=== PATIENT | female | born 1940 | race Hispanic/Latino ===

== ENCOUNTER → 2018-08-18 | Outpatient (CLI) | payer MEDICARE | END | disposition home or self-care (01) | LOC: RAH 15:49 | PROVIDERS: ATTEND Family Medicine | DX: M25.512 Pain in left shoulder (principal); Z95.0 Presence of cardiac pacemaker | CPT/HCPCS: 73030 ==

== ENCOUNTER 2019-02-22 02:44 | Observation (INO) | payer MEDICARE ==
[~2019-02-22] VITALS: Ht 152.4 cm; Wt 81.9 kg
[2019-02-22 03:10] LABS: BASOPHILS % (AUTO) 0.5 % (0.0-5.0); EOSINOPHILS % (AUTO) 2.6 % (0.0-8.0); HEMATOCRIT 32.8 % (36-48); LYMPHOCYTES % (AUTO) 33.8 % (21.0-51.0); MEAN CORPUSCULAR HGB CONC 33.3 g/dL (32.0-36.0); MEAN CORPUSCULAR VOLUME 95.9 fL (79-99); MONOCYTES % (AUTO) 7.3 % (3.0-13.0); NEUTROPHILS % (AUTO) 55.8 % (40.0-77.0); PLATELET COUNT (AUTO) 91 K/uL (130-400); RED BLOOD CELL COUNT(AUTO) 3.42 MIL/uL (4.00-5.50); RED CELL DISTRIBUTION WIDTH 13.7 % (11.0-15.5); WHITE BLOOD COUNT (AUTO) 6.5 K/uL (4.8-10.8)
[2019-02-22 03:20] LABS: CREATININE 2.3 mg/dL (0.5-1.5)
[2019-02-22 03:23] LABS: ALBUMIN 3.3 g/dL (3.5-5.0); BILIRUBIN,TOTAL 0.3 mg/dL (0.2-1.0); TOTAL PROTEIN, SERUM 6.8 g/dL (6.0-8.3)
[2019-02-22] MEDS ORDERED: ASPIRIN 325 MG TABLET ONE (03:27)
[2019-02-22] MEDS ORDERED: NITROGLYCERIN 0.4 MG SL TAB SL ONE (03:27)
[2019-02-22 03:28] LABS: B-TYPE NATRIURETIC PEPTIDE 48 pg/mL (0-100)
[2019-02-22] MEDS ORDERED: SODIUM CHLORIDE 0.9% 500ML 500 ML IV ONE (03:36)
[2019-02-22 03:38] LABS: INR 0.98 (0.85-1.15); PARTIAL THROMBOPLASTIN TIME 29.8 SEC (26.3-35.5); PROTHROMBIN TIME 10.3 SEC (9.6-11.6)
--- NOTE | 2019-02-22 05:30 | NUR ---
REPORT RECEIVED FROM AGUSTIN PATIÑO
--- NOTE | 2019-02-22 05:55 | NUR ---
PT ARRIVED AT THIS TIME. STABLE. NO DISTRESS NOTED. ABLE TO AMBULATE. ACCOMPANIED BY FAMILY MEMBER. NO HOME MEDS AVAILABLE. PENDING PPM INFORMATION FROM HOME. SON WILL BRING IN THE AM.
[2019-02-22 07:46] VITALS: BP 139/52
[2019-02-22 09:41] LABS: TROPONIN I 0.31 ng/mL (0.00-0.06)
[2019-02-22] MEDS ORDERED: POTASSIUM CHLORIDE 20 MEQ ERTAB PO SCH (11:00)
[2019-02-22 11:35] VITALS: BP 133/57
[2019-02-22] MEDS ORDERED: NITROGLYCERIN 1GM/1 INCH PACKET TD SCH (12:00)
[2019-02-22] MEDS ORDERED: ACETAMINOPHEN 325 MG TAB PO PRN ×2 (13:15)
[2019-02-22] MEDS ORDERED: HYDRALAZINE HCL 20 MG/ML VIAL IM PRN (13:15)
[2019-02-22] MEDS ORDERED: ENOXAPARIN SODIUM 80 MG/0.8 ML SQ SCH (13:50)
[2019-02-22] MEDS: NS-20 MEQ KCL 1000ML 1,000 ML IV SCH (14:03)
[2019-02-22] MEDS: METOPROLOL TARTRATE 50 MG TAB PO SCH ×2 (14:06→23:09)
[2019-02-22 14:10] LABS: MAGNESIUM 1.4 mg/dL (1.80-2.40); THYROID STIMULATING HORMONE 8.3 uIU/mL (0.36-3.74)
[2019-02-22 15:30] VITALS: BP 123/60
[2019-02-22 16:07] LABS: TROPONIN I 0.21 ng/mL (0.00-0.06)
--- NOTE | 2019-02-22 17:07 | NUR ---
cm note met with patient and states resides at home with spouse independent with ambulation and adls uses cane and walker only at times, mostly ambulates per self, has a walker and a cane, states may need w/c later on, informed to followup with her PCP for rx . verbalizes understanding. has provider that assists 2hrs daily. [facility] dc plan is back to home at time of dc. no dc needs. Addendum: 02/22/19 at 1709 by RENU BROWN CM Amended: Links added.
[2019-02-22 19:00] VITALS: BP 140/43
[2019-02-22] MEDS ORDERED: METOPROLOL TARTRATE 50 MG TAB PO SCH (21:00)
[2019-02-22] MEDS: INSULIN HUMULIN R 100 UNIT/ML 3ML SQ SCH ×2 (21:00→23:09)
[2019-02-22] MEDS ORDERED: MAGNESIUM 2GM PREMIX 50ML 50 ML IV PRN (21:45)
[2019-02-22 23:00] VITALS: BP 132/60
[2019-02-23 03:00] VITALS: BP 140/60
[2019-02-23 04:30] LABS: HEMATOCRIT 32.7 % (36-48); MEAN CORPUSCULAR HGB CONC 33.6 g/dL (32.0-36.0); MEAN CORPUSCULAR VOLUME 95.3 fL (79-99); NUCLEATED RED BLOOD CELLS 0.1 % (0.0-0.19); PLATELET COUNT (AUTO) 99 K/uL (130-400); RED BLOOD CELL COUNT(AUTO) 3.43 MIL/uL (4.00-5.50); WHITE BLOOD COUNT (AUTO) 5.6 K/uL (4.8-10.8)
[2019-02-23 04:35] LABS: PARTIAL THROMBOPLASTIN TIME 28.9 SEC (26.3-35.5); PROTHROMBIN TIME 10.5 SEC (9.6-11.6)
[2019-02-23 04:49] LABS: ALBUMIN 2.8 g/dL (3.5-5.0); BILIRUBIN,TOTAL 0.4 mg/dL (0.2-1.0); CREATININE 1.4 mg/dL (0.5-1.5); MAGNESIUM 1.3 mg/dL (1.80-2.40); PHOSPHORUS 2.7 mg/dL (2.5-4.9); POTASSIUM 3.9 mmol/L (3.5-5.1); TOTAL PROTEIN, SERUM 6.3 g/dL (6.0-8.3); TROPONIN I 0.09 ng/mL (0.00-0.06)
[2019-02-23] MEDS: INSULIN HUMULIN R 100 UNIT/ML 3ML SQ SCH ×4 (06:28→21:00)
[2019-02-23 07:26] VITALS: BP 145/61
[2019-02-23] MEDS ORDERED: MAGNESIUM 4GM PREMIX 100ML 100 ML IV PRN (07:45)
--- NOTE | 2019-02-23 07:52 | NUR ---
MD ROUNDS DR. JUAREZ IN TO SEE PATIENT. NEW ORDERS RECEIVED TO BE CARRIED OUT.
[2019-02-23] MEDS: ASPIRIN 325MG EC TAB 325 MG TABLET.DR PO SCH (08:01)
[2019-02-23] MEDS: NS-20 MEQ KCL 1000ML 1,000 ML IV SCH ×2 (08:01→22:35)
[2019-02-23] MEDS: METOPROLOL TARTRATE 50 MG TAB PO SCH ×2 (08:01→21:05)
[2019-02-23] MEDS ORDERED: SEMAGLUTIDE SQ (11:01)
[2019-02-23] MEDS ORDERED: EMPA25TA PO (11:08)
[2019-02-23] MEDS ORDERED: METO5TAB7 PO (11:08)
[2019-02-23] MEDS ORDERED: METF-444 PO (11:08)
[2019-02-23] MEDS ORDERED: ASPI-1197 PO (11:08)
[2019-02-23] MEDS ORDERED: METO50TA18 PO (11:08)
[2019-02-23] MEDS ORDERED: ALLO300T2 PO (11:08)
[2019-02-23] MEDS ORDERED: GABA-531 PO (11:08)
[2019-02-23] MEDS ORDERED: IRON1CAP30 PO (11:08)
[2019-02-23] MEDS ORDERED: FURO40TA5 PO (11:08)
[2019-02-23] MEDS ORDERED: OMEP-50 PO (11:08)
[2019-02-23] MEDS ORDERED: LORA1TAB3 PO (11:08)
[2019-02-23] MEDS ORDERED: MAGN400T25 PO (11:08)
[2019-02-23] MEDS ORDERED: ICOS1CAP PO (11:09)
[2019-02-23 11:30] VITALS: BP 141/58
--- NOTE | 2019-02-23 13:00 | NUR ---
RECEIVED CALL FROM DR. COWART. UPDATED STATUS. NEW ORDERS RECEIVED TO BE CARRIED OUT.
--- NOTE | 2019-02-23 14:30 | NUR ---
DR. MORA CONSULT CALLED IN TO MD OFFICE. PENDING MD TO SEE PATIENT.
[2019-02-23 15:38] VITALS: BP 142/53
--- NOTE | 2019-02-23 17:43 | NUR ---
PATIENT UPDATED ON POC PER DR COWART.
[2019-02-23 20:31] VITALS: BP 149/64
[2019-02-24 00:24] VITALS: BP 132/53
[2019-02-24 04:51] VITALS: BP 150/58
[2019-02-24] MEDS: INSULIN HUMULIN R 100 UNIT/ML 3ML SQ SCH ×4 (05:49→21:18)
--- NOTE | 2019-02-24 05:50 | NUR ---
glucometer 189, no coverage, pt npo for stress test today. will continue to monitor patient.
[2019-02-24 07:31] VITALS: BP 129/74
[2019-02-24] MEDS ORDERED: REGADENOSON 0.4 MG/5 ML PF SYG IVP SCH (07:45)
[2019-02-24] MEDS: METOPROLOL TARTRATE 50 MG TAB PO SCH (09:00)
[2019-02-24 11:08] VITALS: BP 137/58
[2019-02-24] MEDS: ASPIRIN 325MG EC TAB 325 MG TABLET.DR PO SCH (11:28)
[2019-02-24 15:16] VITALS: BP 131/55
[2019-02-24 20:03] VITALS: BP 148/49
[2019-02-24] MEDS: METOPROLOL TARTRATE 25 MG TAB PO SCH (21:00)
[2019-02-25 00:03] VITALS: BP 138/63
[2019-02-25 03:56] VITALS: BP 137/50
[2019-02-25] MEDS: INSULIN HUMULIN R 100 UNIT/ML 3ML SQ SCH (05:50)
--- NOTE | 2019-02-25 07:45 | NUR ---
AM ASSESSMENT PT SITTING IN BED, RESTING. FAMILY @ BEDSIDE. A/O X 3. NO SOB. NO DISTRESS NOTED. DENIES CHEST PAIN OR DISCOMFORT. DENIES PALPITATIONS. TELE: SR 60s. DENIES N/V AND/OR DIARRHEA. UP W/ASSISTANCE. INSTRUCTED TO CALL FOR ASSISTANCE. CALL LUPE W/IN REACH.
[2019-02-25 08:00] VITALS: BP 135/53
[2019-02-25] MEDS: METOPROLOL TARTRATE 25 MG TAB PO SCH (08:11)
[2019-02-25] MEDS: ASPIRIN 325MG EC TAB 325 MG TABLET.DR PO SCH (08:11)
[2019-02-25] MEDS ORDERED: FURO20TA6 PO (09:41)
[2019-02-25] MEDS ORDERED: METO25 PO (09:41)
--- NOTE | 2019-02-25 11:15 | NUR ---
DISCHARGE VERBAL& WRITTEN DISCHARGE INSTRUCTIONS REVIEWED & GIVEN TO PT & DAUGHTER IN EMIRATI. QUESTIONS ENCOURAGED & CLARIFIED. PROPER CARE & MGT OF CARDIAC DYSRHYTHMIA REVIEWED. DOSE ADJUSTMENTS TO HOME MEDICATIONS REVIEWED. PRESCRIPTION GIVEN TO PT. SIGNED COPY OF PRESCRIPTION PLACED IN CHART. TELE KESHAWN REMOVED. IV DISCONTINUED. PT & FAMILY TO GATHER PERSONAL BELONGINGS. WILL NOTIFY STAFF WHEN READY TO BE TAKEN TO PRIVATE VEHICLE.
--- NOTE | 2019-02-25 11:30 | NUR ---
DISCHARGE PT TAKEN TO PRIVATE VEHICLE VIA WC BY Kirk MAJOR PCP, ACCOMPANIED BY FAMILY. NO DISTRESS NOTED.
== END 2019-02-25 11:30 | disposition home or self-care (01) ==
LOC: EDH 02:44 → EDHIP 04:24 → 2DH 05:58
PROVIDERS: ADMIT Internal Medicine Critical Care Medicine; ATTEND Internal Medicine Critical Care Medicine
DX: I47.1 Supraventricular tachycardia (principal); I13.0 Hypertensive heart and chronic kidney disease with heart failure and stage 1 through stage 4 chronic kidney disease, or unspecified chronic kidney disease; N18.4 Chronic kidney disease, stage 4 (severe); I50.32 Chronic diastolic (congestive) heart failure; N17.9 Acute kidney failure, unspecified; R42 Dizziness and giddiness; E11.22 Type 2 diabetes mellitus with diabetic chronic kidney disease; E78.5 Hyperlipidemia, unspecified; E83.42 Hypomagnesemia; E87.6 Hypokalemia; I45.9 Conduction disorder, unspecified; I49.5 Sick sinus syndrome; F41.9 Anxiety disorder, unspecified; Z82.49 Family history of ischemic heart disease and other diseases of the circulatory system; Z90.5 Acquired absence of kidney; Z95.0 Presence of cardiac pacemaker; Z79.899 Other long term (current) drug therapy
CPT/HCPCS: 36415 ×2; 71045; 78452; 78582; 80053 ×2; 82550 ×4; 82948 ×11; 83605; 83735 ×2; 83874 ×3; 83880; 84100; 84443; 84484 ×4; 85025; 85027; 85610 ×2; 85730 ×2; 93005 ×3; 93017; 93306; 93970; 96361 ×2; 96365; 96366; 96372 ×3; 99284; A9500 ×2; A9540; A9558; G0378 ×71; J1650; J1815 ×7; J2785; J3480 ×2; J7040; 96374

== ENCOUNTER 2019-08-13 12:29 | Emergency (ER) | payer MEDICARE ==
[~2019-08-13 12:29] MED LIST: ALLO300T2 PO; ASPI-1197 PO; EMPA25TA PO; FURO20TA6 PO; GABA-531 PO; ICOS1CAP PO; IRON1CAP30 PO; LORA1TAB3 PO; MAGN400T25 PO; METF-444 PO; METO25 PO; METO5TAB7 PO; OMEP20CA12 PO; SEMAGLUTIDE SQ
[2019-08-13 13:35] LABS: ALBUMIN 3.1 g/dL (3.5-5.0); BILIRUBIN,TOTAL 0.5 mg/dL (0.2-1.0); CREATININE 1.6 mg/dL (0.5-1.5); POTASSIUM 3.9 mmol/L (3.5-5.1); TOTAL PROTEIN, SERUM 7.1 g/dL (6.0-8.3)
[2019-08-13 13:36] LABS: BASOPHILS % (AUTO) 0.8 % (0.0-5.0); CREATINE KINASE, TOTAL 134 U/L (21-232); EOSINOPHILS % (AUTO) 3.4 % (0.0-8.0); HEMATOCRIT 37.9 % (36-48); LYMPHOCYTES % (AUTO) 28.8 % (21.0-51.0); MEAN CORPUSCULAR HEMOGLOBIN 30.1 pg (27.0-33.0); MEAN CORPUSCULAR HGB CONC 31.9 g/dL (32.0-36.0); MEAN CORPUSCULAR VOLUME 94.3 fL (79-99); MONOCYTES % (AUTO) 6.6 % (3.0-13.0); NEUTROPHILS % (AUTO) 60.2 % (40.0-77.0); PLATELET COUNT (AUTO) 121 K/uL (130-400); RED BLOOD CELL COUNT(AUTO) 4.02 MIL/uL (4.00-5.50); RED CELL DISTRIBUTION WIDTH 13.9 % (11.0-15.5); TROPONIN I < 0.04 ng/mL (0.00-0.06); WHITE BLOOD COUNT (AUTO) 6.2 K/uL (4.8-10.8)
[2019-08-13 14:01] LABS: MYOGLOBIN 118 ng/mL (10-92)
[2019-08-13] MEDS ORDERED: ASPIRIN 81MG TAB.CHEW ONE (14:28)
[2019-08-13] MEDS ORDERED: OSELTAMIVIR PHOSPHATE 75 MG CAP ONE (15:21)
== END 2019-08-13 15:55 | disposition left against medical advice (07) ==
LOC: EDH 12:29
DX: R07.89 Other chest pain (principal); F41.9 Anxiety disorder, unspecified; E11.9 Type 2 diabetes mellitus without complications; I10 Essential (primary) hypertension; Z90.49 Acquired absence of other specified parts of digestive tract; Z88.0 Allergy status to penicillin
CPT/HCPCS: 36415; 71045; 80053; 82550; 83874; 84484; 85025; 87804; 93005

== ENCOUNTER → 2020-12-29 | Outpatient (CLI) | payer MEDICARE | END | disposition home or self-care (01) | LOC: RAH 10:57 | PROVIDERS: ATTEND Family Medicine | DX: R60.9 Edema, unspecified (principal) | CPT/HCPCS: 93970 ==

== ENCOUNTER 2021-12-21 10:27 | Observation (INO) | payer OTHER, MEDICARE ==
[~2021-12-21] VITALS: Ht 157.5 cm; Wt 80.1 kg
[2021-12-21 10:55] LABS: BASOPHILS % (AUTO) 0.7 % (0.0-5.0); EOSINOPHILS % (AUTO) 1.4 % (0.0-8.0); HEMATOCRIT 28.7 % (36-48); LYMPHOCYTES % (AUTO) 38.6 % (21.0-51.0); MEAN CORPUSCULAR HEMOGLOBIN 35.2 pg (27.0-33.0); MEAN CORPUSCULAR HGB CONC 33.1 g/dL (32.0-36.0); MEAN CORPUSCULAR VOLUME 106.3 fL (79-99); MONOCYTES % (AUTO) 6.5 % (3.0-13.0); NEUTROPHILS % (AUTO) 52.6 % (40.0-77.0); PLATELET COUNT (AUTO) 106 K/uL (130-400); RED CELL DISTRIBUTION WIDTH 19.1 % (11.0-15.5); WHITE BLOOD COUNT (AUTO) 5.6 K/uL (4.8-10.8)
[2021-12-21 11:05] LABS: ALANINE AMINOTRANSFERASE 60 U/L (12-78); ALBUMIN 1.5 g/dL (3.5-5.0); ASPARTATE AMINOTRANSFERASE 213 U/L (10-37); BILIRUBIN,TOTAL 7.3 mg/dL (0.2-1.0); CARBON DIOXIDE 35 mmol/L (21-32); CHLORIDE 97 mmol/L (101-111); CREATININE 2.3 mg/dL (0.5-1.5); GLOMERULAR FILTR. RATE CALC 22 mL/min (>60); GLUCOSE,RANDOM 106 mg/dL (70-105); SODIUM SERUM 138 mmol/L (136-145); TOTAL PROTEIN, SERUM 6.5 g/dL (6.0-8.3); UREA NITROGEN, BLOOD 39 mg/dL (7-18)
[2021-12-21 11:08] LABS: ACETAMINOPHEN < 1 mcg/mL (10-30); AMMONIA 77 umol/L (11-32)
[2021-12-21] MEDS ORDERED: LACTULOSE 20 GM/30 ML UDCUP PR STA (11:11)
[2021-12-21] MEDS: POTASSIUM CHLORIDE 10MEQ/100ML 10 MEQ/100 ML ML IV SCH (13:12)
[2021-12-21] MEDS ORDERED: LIDOCAINE HCL-MPF 1% 2ML VIAL ONE (13:27)
[2021-12-21] MEDS ORDERED: KCL 20 MEQ ERTAB PO PRN (13:30)
[2021-12-21] MEDS ORDERED: LIDOCAINE HCL-MPF 1% 2ML VIAL IV PRN (13:30)
[2021-12-21] MEDS ORDERED: POTASSIUM CHLORIDE 20MEQ/100ML 100 ML IV PRN (13:30)
[2021-12-21] MEDS: LACTULOSE 20 GM/30 ML UDCUP PO SCH ×2 (14:31→22:01)
[2021-12-21 15:15] VITALS: BP 130/65
[2021-12-21 20:04] VITALS: BP 126/60
[2021-12-21] MEDS: RIFAXIMIN 550 MG TABLET PO SCH (22:01)
[2021-12-21 23:36] VITALS: BP 109/40
[2021-12-22 04:10] VITALS: BP 110/56
[2021-12-22] MEDS: LACTULOSE 20 GM/30 ML UDCUP PO SCH ×4 (04:49→21:30)
[2021-12-22 05:56] LABS: HEMATOCRIT 27.1 % (36-48); MEAN CORPUSCULAR HEMOGLOBIN 34.6 pg (27.0-33.0); MEAN CORPUSCULAR HGB CONC 32.5 g/dL (32.0-36.0); MEAN CORPUSCULAR VOLUME 106.7 fL (79-99); RED BLOOD CELL COUNT(AUTO) 2.54 MIL/uL (4.00-5.50); WHITE BLOOD COUNT (AUTO) 6.7 K/uL (4.8-10.8)
[2021-12-22 06:24] LABS: ALBUMIN 1.3 g/dL (3.5-5.0); BILIRUBIN,TOTAL 8.2 mg/dL (0.2-1.0); CREATININE 2.2 mg/dL (0.5-1.5); TOTAL PROTEIN, SERUM 5.9 g/dL (6.0-8.3)
[2021-12-22 06:32] LABS: POTASSIUM 2.8 mmol/L (3.5-5.1)
[2021-12-22] MEDS: POTASSIUM CHLORIDE 10% ELIXIR 20 MEQ/15 ML UDCUP PO PRN ×4 (06:36→16:37)
[2021-12-22 08:00] VITALS: BP 124/47
[2021-12-22] MEDS: THIAMINE HCL 100 MG TABLET PO SCH (09:42)
[2021-12-22] MEDS: RIFAXIMIN 550 MG TABLET PO SCH ×2 (09:42→21:30)
[2021-12-22] MEDS: PANTOPRAZOLE 40 MG TAB DR PO SCH (09:42)
[2021-12-22] MEDS: FOLIC ACID 1 MG TABLET PO SCH (09:42)
[2021-12-22 11:00] VITALS: BP 115/43
[2021-12-22] MEDS: POTASSIUM CHLORIDE 10MEQ/100ML 10 MEQ/100 ML ML IV SCH (11:23)
[2021-12-22 16:00] VITALS: BP 120/51
[2021-12-22 20:51] VITALS: BP 128/44
[2021-12-23 00:15] VITALS: BP 128/44
[2021-12-23 04:39] VITALS: BP 122/39
[2021-12-23 05:08] LABS: HEMATOCRIT 26.7 % (36-48); MEAN CORPUSCULAR HEMOGLOBIN 34.1 pg (27.0-33.0); MEAN CORPUSCULAR HGB CONC 31.8 g/dL (32.0-36.0); MEAN CORPUSCULAR VOLUME 107.2 fL (79-99); RED BLOOD CELL COUNT(AUTO) 2.49 MIL/uL (4.00-5.50); RED CELL DISTRIBUTION WIDTH 19.5 % (11.0-15.5); WHITE BLOOD COUNT (AUTO) 7.5 K/uL (4.8-10.8)
[2021-12-23 05:32] LABS: ALBUMIN 1.3 g/dL (3.5-5.0); BILIRUBIN,TOTAL 6.8 mg/dL (0.2-1.0); CREATININE 2.6 mg/dL (0.5-1.5); MAGNESIUM 1.4 mg/dL (1.80-2.40); POTASSIUM 3.6 mmol/L (3.5-5.1); TOTAL PROTEIN, SERUM 5.9 g/dL (6.0-8.3)
[2021-12-23] MEDS: LACTULOSE 20 GM/30 ML UDCUP PO SCH ×3 (05:37→14:01)
[2021-12-23 07:30] VITALS: BP 117/49
[2021-12-23] MEDS: FOLIC ACID 1 MG TABLET PO SCH (08:44)
[2021-12-23] MEDS: PANTOPRAZOLE 40 MG TAB DR PO SCH (08:44)
[2021-12-23] MEDS: RIFAXIMIN 550 MG TABLET PO SCH (08:44)
[2021-12-23] MEDS: THIAMINE HCL 100 MG TABLET PO SCH (08:44)
[2021-12-23 11:00] VITALS: BP 114/59
[2021-12-23] MEDS: POTASSIUM CHLORIDE 10MEQ/100ML 10 MEQ/100 ML ML IV SCH (12:20)
[2021-12-23] MEDS ORDERED: MAGNESIUM 2GM PREMIX 50ML 50 ML IV PRN (14:30)
[2021-12-23] MEDS ORDERED: MAGNESIUM 2GM PREMIX 50ML 50 ML IV ONE (14:32)
[2021-12-23] MEDS ORDERED: MAGNESIUM 2GM PREMIX 50ML 50 ML IV SCH (15:00)
[2021-12-23] MEDS ORDERED: LACT PO (15:51)
[2021-12-23] MEDS ORDERED: RIFA550T PO (15:51)
[2021-12-23 16:00] VITALS: BP 111/46
[2021-12-23] MEDS ORDERED: MAGNESIUM OXIDE 400 MG TABLET PO ONE (18:30)
== END 2021-12-23 18:40 | disposition home or self-care (01) ==
LOC: EDH 10:27 → EDHIP 13:26 → 3AH 15:15
PROVIDERS: ADMIT Internal Medicine Critical Care Medicine; ATTEND Internal Medicine Critical Care Medicine
DX: G93.40 Encephalopathy, unspecified (principal); I13.0 Hypertensive heart and chronic kidney disease with heart failure and stage 1 through stage 4 chronic kidney disease, or unspecified chronic kidney disease; I50.9 Heart failure, unspecified; N18.30 Chronic kidney disease, stage 3 unspecified; E11.22 Type 2 diabetes mellitus with diabetic chronic kidney disease; E87.6 Hypokalemia; D69.6 Thrombocytopenia, unspecified; I25.10 Atherosclerotic heart disease of native coronary artery without angina pectoris; E66.9 Obesity, unspecified; E83.42 Hypomagnesemia; E78.00 Pure hypercholesterolemia, unspecified; E78.5 Hyperlipidemia, unspecified; C22.0 Liver cell carcinoma; K72.90 Hepatic failure, unspecified without coma; K74.60 Unspecified cirrhosis of liver; N17.9 Acute kidney failure, unspecified; Z68.38 Body mass index [BMI] 38.0-38.9, adult; Z85.05 Personal history of malignant neoplasm of liver; Z85.528 Personal history of other malignant neoplasm of kidney; Z86.16 Personal history of COVID-19; Z90.5 Acquired absence of kidney; Z95.1 Presence of aortocoronary bypass graft; Z28.310 Unvaccinated for COVID-19; Z79.899 Other long term (current) drug therapy; Z98.890 Other specified postprocedural states; Z79.82 Long term (current) use of aspirin; Z79.84 Long term (current) use of oral hypoglycemic drugs
CPT/HCPCS: 36415 ×3; 70450; 80053 ×3; 82140 ×2; 83735; 84484; 85025; 85027 ×2; 93005; 96365; 96366; 96375 ×2; 99291; G0378 ×54; J3475; J3480; J3490 ×2

== ENCOUNTER 2022-01-04 08:20 | Emergency (ER) | payer OTHER, MEDICARE ==
[~2022-01-04] VITALS: Ht 154.9 cm; Wt 84.4 kg
[~2022-01-04 08:20] MED LIST changes: +LACT PO; +RIFA550T PO
[2022-01-04 09:04] LABS: BASOPHILS % (AUTO) 0.7 % (0.0-5.0); EOSINOPHILS % (AUTO) 1.4 % (0.0-8.0); HEMATOCRIT 26.3 % (36-48); LYMPHOCYTES % (AUTO) 19.6 % (21.0-51.0); MEAN CORPUSCULAR HEMOGLOBIN 35.6 pg (27.0-33.0); MEAN CORPUSCULAR HGB CONC 33.5 g/dL (32.0-36.0); MEAN CORPUSCULAR VOLUME 106.5 fL (79-99); MONOCYTES % (AUTO) 6.1 % (3.0-13.0); NEUTROPHILS % (AUTO) 71.4 % (40.0-77.0); PLATELET COUNT (AUTO) 133 K/uL (130-400); RED BLOOD CELL COUNT(AUTO) 2.47 MIL/uL (4.00-5.50); RED CELL DISTRIBUTION WIDTH 17.1 % (11.0-15.5); WHITE BLOOD COUNT (AUTO) 11.5 K/uL (4.8-10.8)
[2022-01-04 09:11] LABS: CREATININE 3.9 mg/dL (0.5-1.5); POTASSIUM 4.5 mmol/L (3.5-5.1)
[2022-01-04 09:16] LABS: ALBUMIN 1.1 g/dL (3.5-5.0); BILIRUBIN,TOTAL 8.7 mg/dL (0.2-1.0); TOTAL PROTEIN, SERUM 5.9 g/dL (6.0-8.3)
[2022-01-04 11:31] VITALS: BP 110/41
== END 2022-01-04 12:00 | disposition home or self-care (01) ==
LOC: EDH 08:20
DX: K43.9 Ventral hernia without obstruction or gangrene (principal); E11.9 Type 2 diabetes mellitus without complications; E78.00 Pure hypercholesterolemia, unspecified; I10 Essential (primary) hypertension; Z79.82 Long term (current) use of aspirin; Z79.84 Long term (current) use of oral hypoglycemic drugs; Z79.899 Other long term (current) drug therapy; Z88.0 Allergy status to penicillin
CPT/HCPCS: 36415; 74176; 80053; 85025

== ENCOUNTER → 2022-01-15 | Outpatient (CLI) | payer OTHER, MEDICARE ==
[~2022-01-15] MED LIST changes: +ALBUMIN (HUMAN) 25% 200 ML IV ONE
== END | disposition home or self-care (01) ==
LOC: RAH 10:00
PROVIDERS: ATTEND Internal Medicine Gastroenterology
DX: R18.8 Other ascites (principal); R14.0 Abdominal distension (gaseous); E78.00 Pure hypercholesterolemia, unspecified; I25.10 Atherosclerotic heart disease of native coronary artery without angina pectoris; I13.0 Hypertensive heart and chronic kidney disease with heart failure and stage 1 through stage 4 chronic kidney disease, or unspecified chronic kidney disease; E11.22 Type 2 diabetes mellitus with diabetic chronic kidney disease; N18.30 Chronic kidney disease, stage 3 unspecified; I50.9 Heart failure, unspecified; E78.5 Hyperlipidemia, unspecified; E66.9 Obesity, unspecified; Z79.899 Other long term (current) drug therapy; Z79.82 Long term (current) use of aspirin; Z79.84 Long term (current) use of oral hypoglycemic drugs; Z94.0 Kidney transplant status; Z68.38 Body mass index [BMI] 38.0-38.9, adult; Z98.890 Other specified postprocedural states; Z95.1 Presence of aortocoronary bypass graft; Z85.05 Personal history of malignant neoplasm of liver; Z85.528 Personal history of other malignant neoplasm of kidney
CPT/HCPCS: P9046